=== PATIENT | female | born 1995 | race Two or more races ===

== ENCOUNTER 2017-11-13 18:36 | Emergency (ER) | payer MEDICAID ==
[~2017-11-13] VITALS: Ht 162.6 cm; Wt 81.4 kg
[~2017-11-13 18:36] MED LIST: ASPI-496 PO; ASPI325T17 PO; SUMA25TA3 PO; TIZA2CAP PO; TIZA4TAB9 PO; TOPI25CA5 PO
[2017-11-13] MEDS ORDERED: ACETAMINOPHEN 500 MG TABLET PO ONE (19:00)
[2017-11-13] MEDS ORDERED: ACETAMINOPHEN 500 MG TABLET ONE (19:06)
[2017-11-13 19:36] VITALS: BP 108/66
== END 2017-11-13 19:52 | disposition home or self-care (01) ==
LOC: ED 19:00
DX: S16.1XXA Strain of muscle, fascia and tendon at neck level, initial encounter (principal); S00.03XA Contusion of scalp, initial encounter; G43.909 Migraine, unspecified, not intractable, without status migrainosus; I05.0 Rheumatic mitral stenosis; Z90.49 Acquired absence of other specified parts of digestive tract; Z95.2 Presence of prosthetic heart valve; Z86.73 Personal history of transient ischemic attack (TIA), and cerebral infarction without residual deficits; W19.XXXA Unspecified fall, initial encounter; Y93.89 Activity, other specified; Y99.8 Other external cause status; Y92.009 Unspecified place in unspecified non-institutional (private) residence as the place of occurrence of the external cause
CPT/HCPCS: 70450; 72125; 99284

== ENCOUNTER 2018-05-11 15:55 | Emergency (ER) | payer MEDICAID ==
[~2018-05-11] VITALS: Ht 162.6 cm; Wt 79.6 kg
[~2018-05-11 15:55] MED LIST changes: +SODIUM CHLORIDE 0.9% 500 ML IV ONE
[2018-05-11 16:29] LABS: BASOPHILS # (AUTO) 0.04 x10^3/uL (0-0.1); BASOPHILS % (AUTO) 0 % (0-1); EOSINOPHILS % (AUTO) 5 % (1-7); LYMPHOCYTES # (AUTO) 1.72 x10^3/uL (1-3.4); LYMPHOCYTES % (AUTO) 21 % (22-44); MD NO; MEAN CORPUSCULAR HEMOGLOBIN 29.5 pg (27.0-34.8); MEAN CORPUSCULAR HGB CONC 33.6 g/dL (32.4-35.8); MEAN CORPUSCULAR VOLUME 87.7 fL (80-100); MEAN PLATELET VOLUME 7.4 fL (7.4-10.4); MONOCYTES # (AUTO) 0.57 x10^3/uL (0.2-0.8); MONOCYTES % (AUTO) 7 % (2-9); NEUTROPHILS # (AUTO) 5.53 x10^3/uL (1.8-6.8); NEUTROPHILS % (AUTO) 67 % (42-75); PLATELET COUNT 233 x10^3/uL (130-400); RED BLOOD COUNT 5.04 x10^6/uL (3.82-5.3); RED CELL DISTRIBUTION WIDTH 13.9 % (9.6-15.2)
[2018-05-11] MEDS ORDERED: SODIUM CHLORIDE FLUSH 10ML SYR IVF ONE (16:30)
[2018-05-11 16:40] LABS: ALANINE AMINOTRANSFERASE 26 U/L (12-78); ALBUMIN 4.1 g/dL (3.4-5.0); ANION GAP 11 mmol/L (5-15); CALCIUM 8.8 mg/dL (8.5-10.1); CHLORIDE 113 mmol/L (98-107); CREATININE 1.05 mg/dL (0.55-1.02)
[2018-05-11 16:44] LABS: ALKALINE PHOSPHATASE 61 U/L (45-117); BILIRUBIN,TOTAL 0.4 mg/dL (0.2-1.0); TOTAL PROTEIN 7.6 g/dL (6.4-8.2); TROPONIN I < 0.015 ng/mL (0.000-0.045)
[2018-05-11] MEDS ORDERED: PROCHLORPERAZINE 5 MG/ML, 2ML IVPush ONE (17:30)
[2018-05-11] MEDS ORDERED: DIPHENHYDRAMINE 50 MG/ML, 1ML IVPush ONE (17:30)
[2018-05-11 17:50] LABS: MICROSCOPIC NOT IND
[2018-05-11 17:56] LABS: CULTURE INDICATED? NO
[2018-05-11 18:08] LABS: HCT (SEDRATE) 45.1 % (34.6-47.8)
[2018-05-11] MEDS ORDERED: DIPHENHYDRAMINE 50 MG/ML, 1ML ONE (18:34)
[2018-05-11] MEDS ORDERED: PROCHLORPERAZINE 5 MG/ML, 2ML ONE (18:34)
[2018-05-11 19:34] VITALS: BP 138/75
== END 2018-05-11 19:36 | disposition home or self-care (01) ==
LOC: ED 17:48
DX: R51 Headache (principal); M79.1 Myalgia; G43.909 Migraine, unspecified, not intractable, without status migrainosus
CPT/HCPCS: 36415; 71045; 80053; 81003; 83605; 83880; 84484; 84703; 85025; 85651; 86140; 87040; 93005; 96374; 96375; 99285; J0780; J1200; J7040

== ENCOUNTER 2018-11-01 08:53 | Emergency (ER) | payer MEDICAID ==
[~2018-11-01] VITALS: Ht 162.6 cm; Wt 80.0 kg
[~2018-11-01 08:53] MED LIST changes: -SODIUM CHLORIDE 0.9% 500 ML IV ONE
[2018-11-01] MEDS ORDERED: METOPROLOL PO (09:10)
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
[2018-11-01 10:00] VITALS: BP 131/60
--- NOTE | 2018-11-01 10:19 | NUR ---
Patient/Caregiver given discharge instructions and they have confirmed that they understand the instructions. Patient ambulatory with steady gait.
== END 2018-11-01 10:21 | disposition home or self-care (01) ==
LOC: ED 10:09
DX: J01.90 Acute sinusitis, unspecified (principal); H66.001 Acute suppurative otitis media without spontaneous rupture of ear drum, right ear; R09.81 Nasal congestion; Z86.73 Personal history of transient ischemic attack (TIA), and cerebral infarction without residual deficits; Z95.4 Presence of other heart-valve replacement; Z90.49 Acquired absence of other specified parts of digestive tract; Z88.0 Allergy status to penicillin
CPT/HCPCS: 71046; 99283

== ENCOUNTER 2019-01-27 23:28 | Emergency (ER) | payer MEDICAID ==
[~2019-01-27] VITALS: Ht 162.6 cm; Wt 79.9 kg
[~2019-01-27 23:28] MED LIST changes: +METOPROLOL PO
[2019-01-27] MEDS ORDERED: METO25TA35 PO (23:36)
--- NOTE | 2019-01-27 23:40 | NUR ---
PT AMBULATED STEADILY TO ROOM WITH TRIAGE TECH. PT REPORTS URINARY S/S X TUESDAY. DENIES N/V/D. PT AMBUALTED STEADILY TO BATHROOM TO PROVIDE UA. FRIEND AT BEDSIDE.
--- NOTE | 2019-01-28 00:01 | NUR ---
LUNCH RN: DR RAMESH IN ROOM. VS STABLE. CALL LIGHT IN PLACE. NO ACUTE DISTRESS NOTED. WILL CONTINUE TO MONITOR.
[2019-01-28 00:22] LABS: BASOPHILS # (AUTO) 0.03 x10^3/uL (0-0.1); BASOPHILS % (AUTO) 0 % (0-1); EOSINOPHILS # (AUTO) 0.38 x10^3/uL (0-0.4); EOSINOPHILS % (AUTO) 5 % (1-7); LYMPHOCYTES # (AUTO) 1.63 x10^3/uL (1-3.4); LYMPHOCYTES % (AUTO) 21 % (22-44); MD NO; MEAN CORPUSCULAR HEMOGLOBIN 29.6 pg (27.0-34.8); MEAN CORPUSCULAR HGB CONC 32.6 g/dL (32.4-35.8); MEAN CORPUSCULAR VOLUME 90.6 fL (80-100); MEAN PLATELET VOLUME 7.3 fL (7.4-10.4); MONOCYTES # (AUTO) 0.56 x10^3/uL (0.2-0.8); MONOCYTES % (AUTO) 7 % (2-9); NEUTROPHILS # (AUTO) 5.03 x10^3/uL (1.8-6.8); NEUTROPHILS % (AUTO) 66 % (42-75); PLATELET COUNT 232 x10^3/uL (130-400); RED BLOOD COUNT 4.85 x10^6/uL (3.82-5.3); RED CELL DISTRIBUTION WIDTH 14.6 % (9.6-15.2)
--- NOTE | 2019-01-28 00:26 | NUR ---
REPORT GIVEN TO MORIS MEADOWS
[2019-01-28] MEDS ORDERED: SODIUM CHLORIDE FLUSH 10ML SYR IVF ONE (00:30)
[2019-01-28 00:32] LABS: ANION GAP 5 mmol/L (5-15); CALCIUM 8.7 mg/dL (8.5-10.1); CHLORIDE 112 mmol/L (98-107); CREATININE 0.93 mg/dL (0.55-1.02)
[2019-01-28 00:33] LABS: ALANINE AMINOTRANSFERASE 24 U/L (12-78)
[2019-01-28 00:35] LABS: CULTURE INDICATED? YES; MICROSCOPIC INDICATED
[2019-01-28 00:37] LABS: ALKALINE PHOSPHATASE 55 U/L (45-117); BILIRUBIN,TOTAL 0.3 mg/dL (0.2-1.0); TOTAL PROTEIN 7.1 g/dL (6.4-8.2)
[2019-01-28] MEDS ORDERED: MORPHINE SULFATE 4 MG/ML, 1ML ONE (00:58)
[2019-01-28] MEDS ORDERED: ONDANSETRON 2MG/ML, 2ML ONE (00:58)
[2019-01-28] MEDS ORDERED: MORPHINE SULFATE 4 MG/ML, 1ML IVPush PRN (01:00)
[2019-01-28] MEDS ORDERED: ONDANSETRON 2MG/ML, 2ML IVPush ONE (01:00)
[2019-01-28 01:05] VITALS: BP 120/76
--- NOTE | 2019-01-28 01:05 | NUR ---
IV ESTABLISHED. PT MEDICATED PER EMAR FOR 05/24 LLQ/PELVIC ABD PAIN. PT TO CT AT THIS TIME. PLACED ON 2L BY NC FOR SUPPORT WHILE OFF MONITORING.
[2019-01-28] MEDS ORDERED: OMNIPAQUE 350 MG/ML, 100ML BOTTLE ONE (01:14)
[2019-01-28] MEDS ORDERED: METO10TA2 PO (01:28)
--- NOTE | 2019-01-28 01:29 | NUR ---
PT REPORTS IMPROVEMENT IN PAIN WITH MEDICATIONS, 3/10
--- NOTE | 2019-01-28 01:35 | NUR ---
POC IS DC. SPO2 >90% ON RA. PT OFF MONITORING. IV DC'D AND PT ALLOWED TO DRESS. AWAITING DC INSTRUCTIONS
--- NOTE | 2019-01-28 01:44 | NUR ---
PT AWAKE/ALERT, A&OX4. RESPIRATIONS EVEN AND UNLABORED. PT AMBULATING ABOUT ROOM WITHOUT CO DIZZINESS/WEAKNESS/NAUSEA. PT REPORTS IMPROVEMENT IN PAIN. DC EDUCATION PROVIDED, PT DEMONSTRATES UNDERSTANDING. PT AMBULATED STEADILY TO DC WITH RN AND FRIEND. FRIEND TO TRANSPORT PT HOME.
== END 2019-01-28 01:47 | disposition home or self-care (01) ==
LOC: ED 23:41
DX: N30.00 Acute cystitis without hematuria (principal); G43.909 Migraine, unspecified, not intractable, without status migrainosus; Z90.49 Acquired absence of other specified parts of digestive tract
CPT/HCPCS: 36415; 74177; 80053; 81001; 83690; 84703; 85025; 87086; 96374; 96375; 99284; J2270; J2405; Q9967

== ENCOUNTER 2019-07-26 02:38 | Emergency (ER) | payer MEDICAID ==
[~2019-07-26] VITALS: Ht 162.6 cm; Wt 78.0 kg
[~2019-07-26 02:38] MED LIST changes: +METO10TA2 PO; +METO25TA35 PO
[2019-07-26] MEDS ORDERED: LORazepam 1MG TABLET ONE (03:21)
[2019-07-26] MEDS ORDERED: LORazepam 1MG TABLET PO ONE (03:30)
[2019-07-26 03:32] LABS: BASOPHILS # (AUTO) 0.02 x10^3/uL (0-0.1); BASOPHILS % (AUTO) 0 % (0-1); EOSINOPHILS # (AUTO) 0.33 x10^3/uL (0-0.4); EOSINOPHILS % (AUTO) 5 % (1-7); LYMPHOCYTES # (AUTO) 1.53 x10^3/uL (1-3.4); LYMPHOCYTES % (AUTO) 23 % (22-44); MD NO; MEAN CORPUSCULAR HEMOGLOBIN 30.6 pg (27.0-34.8); MEAN CORPUSCULAR HGB CONC 33.6 g/dL (32.4-35.8); MEAN CORPUSCULAR VOLUME 91.1 fL (80-100); MEAN PLATELET VOLUME 7.2 fL (7.4-10.4); MONOCYTES % (AUTO) 6 % (2-9); NEUTROPHILS # (AUTO) 4.48 x10^3/uL (1.8-6.8); NEUTROPHILS % (AUTO) 66 % (42-75); PLATELET COUNT 236 x10^3/uL (130-400); RED BLOOD COUNT 4.98 x10^6/uL (3.82-5.3); RED CELL DISTRIBUTION WIDTH 13.6 % (9.6-15.2)
[2019-07-26 03:48] LABS: ALBUMIN 4.1 g/dL (3.4-5.0); ANION GAP 10 mmol/L (5-15); CALCIUM 9.2 mg/dL (8.5-10.1); CHLORIDE 113 mmol/L (98-107); CREATININE 1.07 mg/dL (0.55-1.02)
[2019-07-26 03:52] LABS: TROPONIN I < 0.015 ng/mL (0.000-0.045)
[2019-07-26 03:58] LABS: T4 (THYROXINE) 8.5 mcg/dL (4.8-13.9)
--- NOTE | 2019-07-26 04:34 | NUR ---
RECEIVED BS REPORT FROM MORIS CONRAD TO ASSUME CARE OF PT. AT THIS TIME. PT. RESTING ON GURNEY WITH EYES CLOSED AND EVEN, NON-LABORED RESPIRATIONS. ALL MONITORS CONNECTED. FAMILY AT BS FOR SUPPORT.
--- NOTE | 2019-07-26 05:09 | NUR ---
CHART UP FOR RECHECK BY ERP.
--- NOTE | 2019-07-26 05:10 | NUR ---
DR. MENDOZA IN TO DISCUSS POC WITH PT. AND MOTHER.
[2019-07-26 05:24] VITALS: BP 99/56
== END 2019-07-26 05:26 | disposition home or self-care (01) ==
LOC: ED 05:15
DX: R00.2 Palpitations (principal); F41.1 Generalized anxiety disorder; Z90.49 Acquired absence of other specified parts of digestive tract
CPT/HCPCS: 36415; 71045; 80048; 82040; 83735; 84436; 84443; 84484; 84703; 85025; 93005; 99284

== ENCOUNTER 2020-02-26 18:39 | Emergency (ER) | payer MEDICAID ==
[~2020-02-26] VITALS: Ht 162.6 cm; Wt 83.6 kg
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
[2020-02-26] MEDS ORDERED: HYDROcodone/APAP 5/325 TABLET PO ONE (20:00)
--- NOTE | 2020-02-26 20:11 | NUR ---
X ray at bedside
[2020-02-26] MEDS ORDERED: HYDROcodone/APAP 5/325 TABLET ONE (20:13)
--- NOTE | 2020-02-26 20:16 | NUR ---
Pt medicated for pain
[2020-02-26 21:21] VITALS: BP 105/62
== END 2020-02-26 21:23 | disposition home or self-care (01) ==
LOC: ED 21:20
DX: G89.11 Acute pain due to trauma (principal); M25.532 Pain in left wrist; M25.522 Pain in left elbow; G43.909 Migraine, unspecified, not intractable, without status migrainosus; Z90.49 Acquired absence of other specified parts of digestive tract; Z86.73 Personal history of transient ischemic attack (TIA), and cerebral infarction without residual deficits; W01.0XXA Fall on same level from slipping, tripping and stumbling without subsequent striking against object, initial encounter; Y93.89 Activity, other specified; Y92.89 Other specified places as the place of occurrence of the external cause; Y99.8 Other external cause status
CPT/HCPCS: 29125; 99284

== ENCOUNTER 2020-07-11 16:44 | Emergency (ER) | payer MEDICAID ==
[~2020-07-11] VITALS: Ht 162.6 cm; Wt 85.0 kg
[2020-07-11] MEDS ORDERED: ONDANSETRON 2MG/ML, 2ML IVPush ONE (17:30)
[2020-07-11] MEDS ORDERED: MORPHINE SULFATE 4 MG/ML, 1ML IVPush PRN (17:30)
[2020-07-11] MEDS ORDERED: ONDANSETRON 2MG/ML, 2ML ONE (17:37)
[2020-07-11] MEDS ORDERED: MORPHINE SULFATE 4 MG/ML, 1ML ONE (17:37)
[2020-07-11 18:04] LABS: BASOPHILS % (AUTO) 0 % (0-1); EOSINOPHILS % (AUTO) 3 % (1-7); LYMPHOCYTES % (AUTO) 17 % (22-44); MEAN CORPUSCULAR HEMOGLOBIN 30.3 pg (27.0-34.8); MEAN CORPUSCULAR HGB CONC 33.6 g/dL (32.4-35.8); MEAN PLATELET VOLUME 7.1 fL (7.4-10.4); MONOCYTES % (AUTO) 6 % (2-9); NEUTROPHILS % (AUTO) 73 % (42-75); PLATELET COUNT 217 x10^3/uL (130-400); RED BLOOD COUNT 4.35 x10^6/uL (3.82-5.3); RED CELL DISTRIBUTION WIDTH 14.5 % (9.6-15.2)
[2020-07-11 18:08] LABS: MD NO
[2020-07-11 18:15] LABS: ALANINE AMINOTRANSFERASE 25 U/L (12-78); ALBUMIN 3.8 g/dL (3.4-5.0); ANION GAP 4 mmol/L (5-15); CALCIUM 8.6 mg/dL (8.5-10.1); CHLORIDE 115 mmol/L (98-107); CREATININE 1.25 mg/dL (0.55-1.02)
[2020-07-11 18:20] LABS: ALKALINE PHOSPHATASE 50 U/L (45-117); BILIRUBIN,TOTAL 0.3 mg/dL (0.2-1.0); TOTAL PROTEIN 7.3 g/dL (6.4-8.2)
[2020-07-11 18:23] LABS: MICROSCOPIC AUTO
[2020-07-11 19:45] VITALS: BP 101/67
== END 2020-07-11 19:47 | disposition home or self-care (01) ==
LOC: ED 17:22
DX: R10.32 Left lower quadrant pain (principal); R10.31 Right lower quadrant pain; R30.0 Dysuria; G43.909 Migraine, unspecified, not intractable, without status migrainosus; Z86.73 Personal history of transient ischemic attack (TIA), and cerebral infarction without residual deficits; Z90.49 Acquired absence of other specified parts of digestive tract; Z95.4 Presence of other heart-valve replacement
CPT/HCPCS: 36415; 76856; 80053; 81001; 84703; 85025; 87077; 87086; 96374; 96375; 99284; J2270; J2405; 87186